=== PATIENT | female | born 1980 | race Caucasian/White ===

== ENCOUNTER 2018-02-04 12:38 | Emergency (ER) | payer OTHER ==
[~2018-02-04] VITALS: Ht 160 cm; Wt 82.7 kg
[~2018-02-04 12:38] MED LIST: BIRTHCONTROL PO; VENL25TA PO
[2018-02-04] MEDS ORDERED: ATOR-2 PO (12:47)
[2018-02-04] MEDS ORDERED: SODIUM CHLORIDE 0.9% 1,000ML IVBOLUS ONE (13:30)
[2018-02-04] MEDS ORDERED: SODIUM CHLORIDE FLUSH 10ML SYR IVF ONE (13:30)
[2018-02-04] MEDS ORDERED: DIPHENHYDRAMINE 50 MG/ML, 1ML IVPush ONE (13:30)
[2018-02-04] MEDS ORDERED: METOCLOPRAMIDE 5 MG/ML, 2ML IVPush ONE (13:30)
[2018-02-04] MEDS ORDERED: KETOROLAC 30 MG/1 ML IVPush ONE (13:30)
[2018-02-04 13:36] LABS: BASOPHILS # (AUTO) 0.05 x10^3/uL (0-0.1); BASOPHILS % (AUTO) 0 % (0-1); EOSINOPHILS # (AUTO) 0.11 x10^3/uL (0-0.4); EOSINOPHILS % (AUTO) 1 % (1-7); LYMPHOCYTES # (AUTO) 3.35 x10^3/uL (1-3.4); LYMPHOCYTES % (AUTO) 29 % (22-44); MD NO; MEAN CORPUSCULAR HEMOGLOBIN 34.9 pg (27.0-34.8); MEAN CORPUSCULAR HGB CONC 34.8 g/dL (32.4-35.8); MEAN CORPUSCULAR VOLUME 100.3 fL (80-100); MEAN PLATELET VOLUME 7.9 fL (7.4-10.4); MONOCYTES # (AUTO) 0.83 x10^3/uL (0.2-0.8); MONOCYTES % (AUTO) 7 % (2-9); NEUTROPHILS # (AUTO) 7.23 x10^3/uL (1.8-6.8); NEUTROPHILS % (AUTO) 63 % (42-75); PLATELET COUNT 392 x10^3/uL (130-400); RED BLOOD COUNT 4.02 x10^6/uL (3.82-5.3); RED CELL DISTRIBUTION WIDTH 12.9 % (9.6-15.2)
[2018-02-04] MEDS ORDERED: DIPHENHYDRAMINE 50 MG/ML, 1ML ONE (13:42)
[2018-02-04] MEDS ORDERED: KETOROLAC 30 MG/1 ML ONE (13:42)
[2018-02-04] MEDS ORDERED: METOCLOPRAMIDE 5 MG/ML, 2ML ONE (13:42)
[2018-02-04 13:44] LABS: ALBUMIN 4.1 g/dL (3.4-5.0); ANION GAP 9 mmol/L (5-15); CALCIUM 8.8 mg/dL (8.5-10.1); CHLORIDE 107 mmol/L (98-107); CREATININE 0.66 mg/dL (0.55-1.02)
[2018-02-04 13:49] LABS: TROPONIN I < 0.015 ng/mL (0.000-0.045)
[2018-02-04 14:44] VITALS: BP 124/70
== END 2018-02-04 14:46 | disposition home or self-care (01) ==
LOC: ED 14:40
DX: R07.89 Other chest pain (principal); B34.9 Viral infection, unspecified; G44.219 Episodic tension-type headache, not intractable; E78.00 Pure hypercholesterolemia, unspecified
CPT/HCPCS: 36415; 70450; 71045; 80048; 82040; 84484; 85025; 93005; 96374; 96375; 99285; J1200; J1885; J2765; J7030

== ENCOUNTER 2018-02-16 14:00 | Emergency (ER) | payer OTHER ==
[~2018-02-16] VITALS: Ht 160 cm; Wt 84.2 kg
[~2018-02-16 14:00] MED LIST changes: +ATOR-2 PO
[2018-02-16 14:03] VITALS: BP 124/79
[2018-02-16 14:42] LABS: HCG UR SG 1.038 (1.003-1.030)
[2018-02-16] MEDS ORDERED: IBUP100T6 PO (14:44)
[2018-02-16 14:45] LABS: MICROSCOPIC INDICATED
[2018-02-16 14:57] LABS: CULTURE INDICATED? NO
== END 2018-02-16 16:12 | disposition home or self-care (01) ==
LOC: ED 15:55
DX: R30.0 Dysuria (principal); E78.00 Pure hypercholesterolemia, unspecified; R39.15 Urgency of urination; R35.0 Frequency of micturition; R10.9 Unspecified abdominal pain
CPT/HCPCS: 81001; 81025; 99284

== ENCOUNTER 2019-06-15 12:37 | Emergency (ER) | payer OTHER ==
[~2019-06-15] VITALS: Ht 160 cm; Wt 88.0 kg
[~2019-06-15 12:37] MED LIST changes: +IBUP100T6 PO
--- NOTE | 2019-06-15 13:06 | NUR ---
ASSUMING PT CARE AT THIS TIME. FIRST CONTACT WITH PT. PT RESTING ON GURNEY. GRANDA.
--- NOTE | 2019-06-15 13:18 | NUR ---
Pt arrives to ed with dizzy spells x 1 week. Pt reports that she thought she had a tooth infection as per her tele doctor suspected. Pt reports she has not had any improvement with jaw pain now. Pt reports no radiation or chest pain or sob. Pt connected to monitors. Pt reports when she gets up quickly she does become dizzy. Pt resting in bed with fall precautions in place. Awaiting further orders.
[2019-06-15] MEDS ORDERED: ONDANSETRON ODT 4 MG ONE (13:23)
[2019-06-15] MEDS ORDERED: MECLIZINE CHEWABLE 25 MG TAB ONE (13:23)
[2019-06-15] MEDS ORDERED: ONDANSETRON ODT 4 MG PO ONE (13:30)
[2019-06-15] MEDS ORDERED: MECLIZINE CHEWABLE 25 MG TAB PO ONE (13:30)
--- NOTE | 2019-06-15 13:42 | NUR ---
Pt medicated per emar.
[2019-06-15 14:28] VITALS: BP 129/86
--- NOTE | 2019-06-15 14:53 | NUR ---
Patient/Caregiver given discharge instructions and they have confirmed that they understand the instructions. Patient ambulatory with steady gait.
== END 2019-06-15 14:55 | disposition home or self-care (01) ==
LOC: ED 14:04
DX: J01.00 Acute maxillary sinusitis, unspecified (principal); R42 Dizziness and giddiness
CPT/HCPCS: 93005; 99283; Q0162

== ENCOUNTER 2020-01-04 09:16 | Emergency (ER) | payer OTHER ==
[~2020-01-04] VITALS: Ht 160 cm; Wt 82.0 kg
[2020-01-04] MEDS ORDERED: ONDANSETRON 2MG/ML, 2ML IVPush ONE (10:00)
[2020-01-04] MEDS ORDERED: HYDROmorphone 2 MG/ML, 1ML IVPush PRN (10:00)
[2020-01-04] MEDS ORDERED: SODIUM CHLORIDE FLUSH 10ML SYR IVF ONE (10:00)
[2020-01-04] MEDS ORDERED: HYDROmorphone 1 MG/ML, 1ML INJ ONE (10:11)
[2020-01-04] MEDS ORDERED: ONDANSETRON 2MG/ML, 2ML ONE (10:11)
[2020-01-04 10:21] LABS: BASOPHILS # (AUTO) 0.04 x10^3/uL (0-0.1); BASOPHILS % (AUTO) 1 % (0-1); EOSINOPHILS # (AUTO) 0.12 x10^3/uL (0-0.4); EOSINOPHILS % (AUTO) 2 % (1-7); LYMPHOCYTES # (AUTO) 2.43 x10^3/uL (1-3.4); LYMPHOCYTES % (AUTO) 32 % (22-44); MD NO; MEAN CORPUSCULAR HEMOGLOBIN 33.1 pg (27.0-34.8); MEAN CORPUSCULAR HGB CONC 32.8 g/dL (32.4-35.8); MEAN PLATELET VOLUME 8.9 fL (7.4-10.4); MONOCYTES % (AUTO) 5 % (2-9); NEUTROPHILS # (AUTO) 4.64 x10^3/uL (1.8-6.8); NEUTROPHILS % (AUTO) 61 % (42-75); PLATELET COUNT 266 x10^3/uL (130-400); RED BLOOD COUNT 4.19 x10^6/uL (3.82-5.3); RED CELL DISTRIBUTION WIDTH 13.5 % (9.6-15.2)
[2020-01-04 10:35] LABS: ALANINE AMINOTRANSFERASE 43 U/L (12-78); ALBUMIN 4.1 g/dL (3.4-5.0); ANION GAP 5 mmol/L (5-15); CALCIUM 9.1 mg/dL (8.5-10.1); CHLORIDE 110 mmol/L (98-107); CREATININE 0.69 mg/dL (0.55-1.02)
[2020-01-04 10:37] LABS: MICROSCOPIC NOT IND
[2020-01-04 10:39] LABS: ALKALINE PHOSPHATASE 67 U/L (45-117); BILIRUBIN,TOTAL 0.9 mg/dL (0.2-1.0)
[2020-01-04 12:44] VITALS: BP 122/54
== END 2020-01-04 12:46 | disposition home or self-care (01) ==
LOC: ED 09:36
DX: R10.11 Right upper quadrant pain (principal); R10.31 Right lower quadrant pain; R19.7 Diarrhea, unspecified; R39.15 Urgency of urination; E78.00 Pure hypercholesterolemia, unspecified; Z87.442 Personal history of urinary calculi
CPT/HCPCS: 36415; 74176; 80053; 81003; 83690; 84703; 85025; 96374; 99284; J2405